=== PATIENT | female | born 1995 | race Caucasian/White ===

== ENCOUNTER → 2016-11-30 | Outpatient (REF) | payer OTHER ==
[~2016-11-30] MED LIST: ACET50TA PO; IBUP-1114 PO; LEVO10VL PO; LEVO137T2 PO; PRENTAB13 PO
[2016-11-30 15:59] LABS: ALBUMIN/GLOBULIN RATIO 1.11 (1.00-1.93); ALKALINE PHOSPHATASE 80 U/L (45-117); ALT/SGPT 20 U/L (12-78); ANION GAP 10 MEQ/L (8-16); AST/SGOT 15 U/L (15-37); BILIRUBIN,TOTAL 0.4 MG/DL (0.2-1.0); BLOOD UREA NITROGEN 11 MG/DL (7-18); CALCIUM LEVEL 8.9 MG/DL (8.5-10.1); CARBON DIOXIDE LEVEL 28 MEQ/L (21-32); CHLORIDE LEVEL 109 MEQ/L (98-107); CHOLESTEROL LEVEL 192 MG/DL (<200); CREATININE FOR GFR 0.76 MG/DL (0.55-1.02); GLOMERULAR FILTRATION RATE > 60.0 (>60); GLUCOSE, FASTING 63 MG/DL (70-105); POTASSIUM SERUM 3.8 MEQ/L (3.5-5.1); SODIUM LEVEL 147 MEQ/L (136-145); TOTAL PROTEIN 7.6 GM/DL (6.4-8.2); TRIGLYCERIDES LEVEL 299 MG/DL (<150)
== END | disposition home or self-care (01) ==
LOC: M SFHCSACK 08:57
PROVIDERS: ATTEND Physician Assistant
DX: E11.9 Type 2 diabetes mellitus without complications (principal); E03.9 Hypothyroidism, unspecified; Z68.38 Body mass index [BMI] 38.0-38.9, adult

== ENCOUNTER → 2017-02-01 | Outpatient (REF) | payer OTHER | LOC: M SFHCSACK 13:20 | PROVIDERS: ATTEND Physician Assistant | DX: E03.9 Hypothyroidism, unspecified (principal) ==

== ENCOUNTER → 2017-02-07 | Outpatient (REF) | payer OTHER | LOC: M LAB REF 17:29 | PROVIDERS: ATTEND Advanced Practice Midwife | DX: Z12.4 Encounter for screening for malignant neoplasm of cervix (principal) ==

== ENCOUNTER → 2017-06-13 | Outpatient (CLI) | payer OTHER ==
[~2017-06-13] MED LIST changes: -PRENTAB13 PO; +PRENTAB20 PO
--- NOTE | 2017-06-13 10:49 | REP ---
Bilateral feet: Right foot two views AP and lateral projections: Comparison is 2014. The previous fracture of the great toe proximal phalange has healed in satisfactory position and alignment. Mineralization joint spaces are normal. There are no calcifications or foreign bodies. Impression: Negative right foot. Healed great toe proximal phalange fracture. Left foot two views: There are no comparisons. Mineralization and joint spaces are normal. There is no fracture or dislocation. No calcifications or foreign bodies. Impression: Negative left foot. Signed by Fazal Ramos MD 06/13/2017 10:41 A
== END ==
LOC: M WUC 09:55
PROVIDERS: ATTEND Family Medicine Addiction Medicine
DX: M21.621 Bunionette of right foot (principal); M21.622 Bunionette of left foot

== ENCOUNTER → 2017-06-13 | Outpatient (CLI) | payer OTHER ==
[2017-06-13 14:06] LABS: ALBUMIN 3.7 GM/DL (3.2-5.2); ALBUMIN/GLOBULIN RATIO 1.09 (1.00-1.93); ALKALINE PHOSPHATASE 63 U/L (45-117); ALT/SGPT 27 U/L (12-78); ANION GAP 10 MEQ/L (8-16); AST/SGOT 12 U/L (15-37); BILIRUBIN,TOTAL 0.2 MG/DL (0.2-1.0); BLOOD UREA NITROGEN 9 MG/DL (7-18); CALCIUM LEVEL 8.7 MG/DL (8.5-10.1); CARBON DIOXIDE LEVEL 24 MEQ/L (21-32); CHLORIDE LEVEL 110 MEQ/L (98-107); CREATININE FOR GFR 0.66 MG/DL (0.55-1.02); GLOMERULAR FILTRATION RATE > 60.0 (>60); GLUCOSE, FASTING 86 MG/DL (70-105); POTASSIUM SERUM 4.1 MEQ/L (3.5-5.1); SODIUM LEVEL 144 MEQ/L (136-145); TOTAL PROTEIN 7.1 GM/DL (6.4-8.2)
== END ==
LOC: M WUC 09:49
PROVIDERS: ATTEND Physician Assistant
DX: E03.9 Hypothyroidism, unspecified (principal)

== ENCOUNTER → 2018-05-16 | Outpatient (REF) | payer OTHER ==
[2018-05-16 15:31] LABS: BASO # 0.1 10^3/uL (0.0-0.2); BASO % 0.5 % (0.0-1.0); EOS # 0.2 10^3/uL (0.0-0.50); EOS % 1.9 % (0.0-3.0); HEMATOCRIT 43.1 % (36.0-47.0); HEMOGLOBIN 13.3 g/dl (12.0-15.5); IMMATURE GRANULOCYTE % 0.4 % (0-3.0); LYMPH # 3.6 10^3/uL (1.5-6.5); LYMPH % 37.2 % (24.0-44.0); MEAN CORPUSCULAR HGB CONC 30.9 g/dl (32.0-36.5); MEAN CORPUSCULAR VOLUME 84.2 fl (80.0-96.0); MONO # 0.7 10^3/uL (0.0-0.8); MONO % 6.8 % (0.0-5.0); NEUTROPHILS # 5.1 10^3/uL (1.8-7.7); NEUTROPHILS % 53.2 % (36.0-66.0); PLATELET COUNT, AUTOMATED 207 10^3/uL (150-450); RED BLOOD COUNT 5.12 10^6/uL (4.00-5.40); RED CELL DISTRIBUTION WIDTH 14.7 % (11.5-14.5); WHITE BLOOD COUNT 9.6 10^3/uL (4.0-10.0)
[2018-05-16 15:42] LABS: ESTIMATED AVERAGE GLUCOSE 120 MG/DL (60-110); HEMOGLOBIN A1c 5.8 %
[2018-05-16 15:49] LABS: ALBUMIN 4.1 GM/DL (3.2-5.2); ALBUMIN/GLOBULIN RATIO 1.11 (1.00-1.93); ALKALINE PHOSPHATASE 68 U/L (45-117); ALT/SGPT 64 U/L (12-78); ANION GAP 8 MEQ/L (8-16); AST/SGOT 43 U/L (7-37); BILIRUBIN,TOTAL 0.4 MG/DL (0.2-1.0); BLOOD UREA NITROGEN 11 MG/DL (7-18); CALCIUM LEVEL 8.9 MG/DL (8.5-10.1); CARBON DIOXIDE LEVEL 26 MEQ/L (21-32); CHLORIDE LEVEL 108 MEQ/L (98-107); CHOLESTEROL LEVEL 186 MG/DL (<200); CHOLESTEROL RISK RATIO 4.769 (<5); CREATININE FOR GFR 0.75 MG/DL (0.55-1.30); FREE T4 0.84 NG/DL (0.76-1.46); GLOMERULAR FILTRATION RATE > 60.0 (>60); GLUCOSE, FASTING 76 MG/DL (70-100); HDL CHOLESTEROL 39 MG/DL (>40); NON-HDL-C 147 MG/DL; POTASSIUM SERUM 4.8 MEQ/L (3.5-5.1); SODIUM LEVEL 142 MEQ/L (136-145); TOTAL PROTEIN 7.8 GM/DL (6.4-8.2); TRIGLYCERIDES LEVEL 290 MG/DL (<150)
== END ==
LOC: M SFHCSACK 09:49
DX: E11.9 Type 2 diabetes mellitus without complications (principal); E03.9 Hypothyroidism, unspecified; Z13.220 Encounter for screening for lipoid disorders
CPT/HCPCS: 84443

== ENCOUNTER → 2018-10-02 | Outpatient (REF) | payer OTHER ==
[2018-10-02 18:04] LABS: MALB URINE SIEMENS 15.2 MG/L; MAU/CREAT RATIO 7.4 MCG/MG (0.0-30.0)
[2018-10-02 18:18] LABS: ESTIMATED AVERAGE GLUCOSE 114 MG/DL (60-110); HEMOGLOBIN A1c 5.6 %
[2018-10-02 18:39] LABS: ALBUMIN 3.8 GM/DL (3.2-5.2); ALBUMIN/GLOBULIN RATIO 1.09 (1.00-1.93); ALKALINE PHOSPHATASE 66 U/L (45-117); ALT/SGPT 22 U/L (12-78); ANION GAP 9 MEQ/L (8-16); AST/SGOT 10 U/L (7-37); BILIRUBIN,TOTAL 0.3 MG/DL (0.2-1.0); BLOOD UREA NITROGEN 10 MG/DL (7-18); CALCIUM LEVEL 8.5 MG/DL (8.5-10.1); CARBON DIOXIDE LEVEL 25 MEQ/L (21-32); CHLORIDE LEVEL 108 MEQ/L (98-107); CHOLESTEROL LEVEL 214 MG/DL (<200); CHOLESTEROL RISK RATIO 6.484 (<5); CREATININE FOR GFR 0.72 MG/DL (0.55-1.30); GLOMERULAR FILTRATION RATE > 60.0 (>60); GLUCOSE, FASTING 72 MG/DL (70-100); HDL CHOLESTEROL 33 MG/DL (>40); LDL CHOLESTEROL 139 MG/DL (<100); NON-HDL-C 181 MG/DL; POTASSIUM SERUM 4.2 MEQ/L (3.5-5.1); SODIUM LEVEL 142 MEQ/L (136-145); TOTAL PROTEIN 7.3 GM/DL (6.4-8.2); TRIGLYCERIDES LEVEL 209 MG/DL (<150)
== END ==
LOC: M LAB REF 16:24
DX: R73.03 Prediabetes (principal)
CPT/HCPCS: 84443

== ENCOUNTER → 2019-02-25 | Outpatient (REF) | payer OTHER, MEDICAID ==
[~2019-02-25] MED LIST changes: -ACET50TA PO; +LEVO100I PO; -LEVO10VL PO; +MAPA500T2 PO
[2019-02-25 14:06] LABS: ALBUMIN 3.8 GM/DL (3.2-5.2); ALT/SGPT 23 U/L (12-78); BILIRUBIN,TOTAL 0.3 MG/DL (0.2-1.0); BLOOD UREA NITROGEN 9 MG/DL (7-18); CALCIUM LEVEL 8.5 MG/DL (8.5-10.1); CARBON DIOXIDE LEVEL 21 MEQ/L (21-32); CHLORIDE LEVEL 108 MEQ/L (98-107); CHOLESTEROL LEVEL 171 MG/DL (<200); CHOLESTEROL RISK RATIO 4.621 (<5); CREATININE FOR GFR 0.75 MG/DL (0.55-1.30); GLOMERULAR FILTRATION RATE > 60.0 (>60); GLUCOSE, FASTING 89 MG/DL (70-100); HDL CHOLESTEROL 37 MG/DL (>40); LDL CHOLESTEROL 87 MG/DL (<100); NON-HDL-C 134 MG/DL; SODIUM LEVEL 141 MEQ/L (136-145); TOTAL PROTEIN 7.6 GM/DL (6.4-8.2); TRIGLYCERIDES LEVEL 235 MG/DL (<150)
[2019-02-25 15:46] LABS: HEMOGLOBIN A1c 5.6 %
== END ==
LOC: M LAB REF 12:17
PROVIDERS: ATTEND Family Medicine Addiction Medicine
DX: R73.03 Prediabetes (principal); E03.8 Other specified hypothyroidism

== ENCOUNTER 2019-05-12 17:23 | Emergency (ER) | payer MEDICAID, OTHER ==
[~2019-05-12] VITALS: Ht 172.7 cm; Wt 111.4 kg
[2019-05-12] MEDS ORDERED: LEVO175T2 (17:30)
[2019-05-12] MEDS ORDERED: HYDR-3363 (17:30)
[2019-05-12] MEDS ORDERED: SERT-155 (17:30)
[2019-05-12 18:02] LABS: BASO # 0.1 10^3/uL (0.0-0.2); BASO % 0.5 % (0.0-1.0); EOS # 0.3 10^3/uL (0.0-0.50); EOS % 1.9 % (0.0-3.0); HEMATOCRIT 39.5 % (36.0-47.0); HEMOGLOBIN 12.7 g/dl (12.0-15.5); LYMPH # 3.8 10^3/uL (1.5-6.5); MEAN CORPUSCULAR HEMOGLOBIN 27.7 pg (27.0-33.0); MEAN CORPUSCULAR HGB CONC 32.2 g/dl (32.0-36.5); MEAN CORPUSCULAR VOLUME 86.2 fl (80.0-96.0); MONO # 0.8 10^3/uL (0.0-0.8); MONO % 6.4 % (0.0-5.0); NEUTROPHILS # 8.2 10^3/uL (1.8-7.7); NEUTROPHILS % 61.7 % (36.0-66.0); PLATELET COUNT, AUTOMATED 227 10^3/uL (150-450); RED BLOOD COUNT 4.58 10^6/uL (4.00-5.40); WHITE BLOOD COUNT 13.2 10^3/uL (4.0-10.0)
[2019-05-12 18:20] LABS: ALBUMIN 3.9 GM/DL (3.2-5.2); ALT/SGPT 20 U/L (12-78); BILIRUBIN,DIRECT < 0.1 MG/DL (0.0-0.2); BILIRUBIN,TOTAL 0.2 MG/DL (0.2-1.0); BLOOD UREA NITROGEN 13 MG/DL (7-18); CALCIUM LEVEL 9.4 MG/DL (8.5-10.1); CARBON DIOXIDE LEVEL 24 MEQ/L (21-32); CHLORIDE LEVEL 114 MEQ/L (98-107); CREATININE FOR GFR 0.85 MG/DL (0.55-1.30); GLOMERULAR FILTRATION RATE > 60.0 (>60); GLUCOSE, FASTING 101 MG/DL (70-100); LIPASE 117 U/L (73-393); POTASSIUM SERUM 3.9 MEQ/L (3.5-5.1); SODIUM LEVEL 146 MEQ/L (136-145); TOTAL PROTEIN 7.5 GM/DL (6.4-8.2)
[2019-05-12 20:32] VITALS: BP 143/66
[2019-05-12] MEDS ORDERED: IBUPROFEN 600 MG TAB PO ONE (21:00)
== END 2019-05-12 21:14 | disposition home or self-care (01) ==
LOC: M ED 17:23
DX: R10.32 Left lower quadrant pain (principal); E11.9 Type 2 diabetes mellitus without complications; E03.9 Hypothyroidism, unspecified; E78.5 Hyperlipidemia, unspecified; Z79.899 Other long term (current) drug therapy; Z79.890 Hormone replacement therapy; F17.210 Nicotine dependence, cigarettes, uncomplicated

== ENCOUNTER → 2019-07-07 | Outpatient (REF) | payer OTHER ==
[~2019-07-07] MED LIST changes: +HYDR-3363; +LEVO175T2; +SERT-155
[2019-07-07 18:45] LABS: ALT/SGPT 25 U/L (12-78); BILIRUBIN,TOTAL 0.5 MG/DL (0.2-1.0); BLOOD UREA NITROGEN 12 MG/DL (7-18); CARBON DIOXIDE LEVEL 24 MEQ/L (21-32); CHLORIDE LEVEL 112 MEQ/L (98-107); CHOLESTEROL LEVEL 181 MG/DL (<200); CHOLESTEROL RISK RATIO 5.484 (<5); CREATININE FOR GFR 0.77 MG/DL (0.55-1.30); FREE T4 0.92 NG/DL (0.76-1.46); GLOMERULAR FILTRATION RATE > 60.0 (>60); GLUCOSE, FASTING 80 MG/DL (70-100); HDL CHOLESTEROL 33 MG/DL (>40); LDL CHOLESTEROL 110 MG/DL (<100); NON-HDL-C 148 MG/DL; POTASSIUM SERUM 4.2 MEQ/L (3.5-5.1); SODIUM LEVEL 143 MEQ/L (136-145); TOTAL PROTEIN 7.5 GM/DL (6.4-8.2); TRIGLYCERIDES LEVEL 189 MG/DL (<150)
[2019-07-07 19:32] LABS: HEMOGLOBIN A1c 5.5 %
== END ==
LOC: M LAB REF 16:46
PROVIDERS: ATTEND Nurse Practitioner Family
DX: Z13.9 Encounter for screening, unspecified (principal); R73.03 Prediabetes

== ENCOUNTER → 2019-07-28 | Outpatient (CLI) | payer OTHER ==
[~2019-07-28] MED LIST changes: +GASTROGRAFIN SOLUTION 30ML (Q9963) As Ordered ONE; +ISOVUE-370 76% 100ML VIAL (Q9967) As Ordered ONE
--- NOTE | 2019-07-29 08:50 | REP ---
Clinical: Left upper quadrant pain. Technique: Axial contrast enhanced images of the abdomen using oral (per protocol) and 100 ml Isovue 370 intravenous contrast material with coronal and sagittal re-formations. Findings: Lung bases are clear. Visualized heart and pericardium normal. Liver, spleen, pancreas, gallbladder, bilateral adrenal glands and kidneys are normal. Visualized enteric system is without obstruction or acute inflammatory process. No ascites. Abdominal aorta normal. No free air. No adenopathy. Musculoskeletal structures are intact. Impression: Normal contrast enhanced CT of the abdomen. Electronically Signed by Kiko Baron MD 07/29/2019 08:41 A
== END ==
LOC: M RAD 13:15
PROVIDERS: ATTEND Nurse Practitioner Family
DX: R10.12 Left upper quadrant pain (principal)
CPT/HCPCS: 74160; Q9963; Q9967

== ENCOUNTER → 2019-10-30 | Outpatient (REF) | payer OTHER ==
[~2019-10-30] MED LIST changes: -GASTROGRAFIN SOLUTION 30ML (Q9963) As Ordered ONE; -ISOVUE-370 76% 100ML VIAL (Q9967) As Ordered ONE; -SERT-155; +SERT50TA29
[2019-10-30 13:03] LABS: INFLUENZA A AMPLIFICATION NEGATIVE (NEGATIVE); INFLUENZA B AMPLIFICATION NEGATIVE (NEGATIVE)
== END ==
LOC: M LAB REF 12:23
PROVIDERS: ATTEND Physician Assistant
DX: R50.9 Fever, unspecified (principal); R05 Cough

== ENCOUNTER → 2019-11-06 | Outpatient (REF) | payer OTHER | LOC: M SFHCWAGY 19:15 | PROVIDERS: ATTEND Advanced Practice Midwife | DX: Z12.4 Encounter for screening for malignant neoplasm of cervix (principal) ==

== ENCOUNTER → 2020-01-19 | Outpatient (REF) | payer OTHER | LOC: M PLALAB 10:16 | PROVIDERS: ATTEND Obstetrics & Gynecology | DX: Z34.81 Encounter for supervision of other normal pregnancy, first trimester (principal) ==

== ENCOUNTER → 2020-02-22 | Outpatient (REF) | payer OTHER ==
[2020-02-22 13:54] LABS: HEMATOCRIT 38.9 % (36.0-47.0); HEMOGLOBIN 12.5 g/dl (12.0-15.5); MEAN CORPUSCULAR HGB CONC 32.1 g/dl (32.0-36.5); PLATELET COUNT, AUTOMATED 200 10^3/uL (150-450); RED BLOOD COUNT 4.47 10^6/uL (4.00-5.40); WHITE BLOOD COUNT 14.1 10^3/uL (4.0-10.0)
[2020-02-22 14:08] LABS: FREE T4 0.88 NG/DL (0.76-1.46)
[2020-02-22 14:21] LABS: RUBELLA IgG QUALITATIVE IMMUNE (IMMUNE)
[2020-02-22 14:22] LABS: HEPATITIS B SURFACE ANTIGEN NEGATIVE (NEGATIVE)
[2020-02-22 14:50] LABS: HEPATITIS C VIRUS ABY INDEX 0.1 INDEX (<0.8); HIV 1&2 SCREEN CENTAUR NEGATIVE (NEGATIVE)
[2020-02-22 15:16] LABS: CHLAMYDIA DNA AMPLIFICATION NEGATIVE (NEGATIVE); GC DNA AMPLIFICATION NEGATIVE (NEGATIVE)
== END ==
LOC: M PLALAB 11:31
PROVIDERS: ATTEND Obstetrics & Gynecology
DX: Z34.81 Encounter for supervision of other normal pregnancy, first trimester (principal)

== ENCOUNTER → 2020-02-24 | Outpatient (REF) | payer OTHER | LOC: M PLALAB 15:43 | PROVIDERS: ATTEND Obstetrics & Gynecology | DX: E03.9 Hypothyroidism, unspecified (principal) ==

== ENCOUNTER → 2020-03-29 | Outpatient (CLI) | payer OTHER ==
--- NOTE | 2020-03-30 02:48 | REP ---
Clinical: Anatomical evaluation. Comparison: None . Findings: Examination demonstrates a single live intrauterine in transverse (head to maternal right) presentation. motion is identified by technologist. Placenta is noted anterior and grade zero without evidence for placenta previa or abruption. Amniotic fluid volume is normal. Cervix measures 3.3 cm in length and appears closed. No evidence for nuchal cord. Gestational age by current measurements 19 weeks 2 days with ROYAL 08/21/2020 . FHR equals 161 beats per minute. BPD 4.5 cm 19 weeks 4 days HC 16.8 cm 19 weeks 3 days AC 14.1 cm 19 weeks 3 days FL 3.1 cm 19 weeks 3 days HL 2.9 cm 19 weeks 3 days HC/AC ratio 1.19 Estimated weight 294 grams ( 52nd percentile). Anatomical assessment demonstrates normal structures including cranium, choroid plexus, cavum, cerebellum/posterior fossa, facial features, lungs, four-chamber heart, diaphragm, stomach, cord insertion, bladder, and extremities. Limited evaluation of the cardiac ventricular outflow tracts, three-vessel cord views, kidneys, and spine. Impression: Single live intrauterine in transverse lie demonstrating appropriate estimated weight. Anatomical limitations as noted above may warrant reevaluation and follow-up.
== END ==
LOC: M WHC 08:55
PROVIDERS: ATTEND Advanced Practice Midwife
DX: Z34.82 Encounter for supervision of other normal pregnancy, second trimester (principal)

== ENCOUNTER → 2020-05-05 | Outpatient (CLI) | payer OTHER ==
--- NOTE | 2020-05-05 12:12 | REP ---
Clinical: Anatomical evaluation. Comparison: 03/29/2020 . Findings: Examination demonstrates a single live intrauterine in transverse (head to maternal left) presentation. motion is identified by technologist. Placenta is noted anterior and grade zero without evidence for placenta previa or abruption. Amniotic fluid volume is normal. Cervix measures 3.4 cm in length and appears closed. No evidence for nuchal cord. Gestational age by LMP 24 weeks 6 days with ROYAL 08/19/2020 . Gestational age by current measurements 24 weeks 3 days with ROYAL 08/22/2020 . FHR equals 150 beats per minute. Estimated weight 738 grams ( 41st percentile). Anatomical assessment demonstrates normal structures including four-chamber heart/ventricular outflow tracts, three-vessel cord, kidneys and spine. Impression: single live intrauterine in transverse lie demonstrating appropriate interval growth. In conjunction with prior examination anatomical assessment is complete and normal.
== END ==
LOC: M WHC 11:09
PROVIDERS: ATTEND Advanced Practice Midwife
DX: O32.2XX0 Maternal care for transverse and oblique lie, not applicable or unspecified (principal); Z36.2 Encounter for other antenatal screening follow-up; Z3A.24 24 weeks gestation of pregnancy

== ENCOUNTER → 2020-05-26 | Outpatient (CLI) | payer OTHER ==
[~2020-05-26] MED LIST changes: +COLA100C5 PO; +PRENTAB9 PO
== END ==
LOC: M LAB 08:45
PROVIDERS: ATTEND Advanced Practice Midwife
DX: O99.332 Smoking (tobacco) complicating pregnancy, second trimester (principal); O99.212 Obesity complicating pregnancy, second trimester; Z3A.22 22 weeks gestation of pregnancy

== ENCOUNTER → 2020-06-28 | Outpatient (CLI) | payer OTHER | LOC: M WHC 10:45 | PROVIDERS: ATTEND Advanced Practice Midwife | DX: Z34.82 Encounter for supervision of other normal pregnancy, second trimester (principal) ==

== ENCOUNTER → 2020-07-05 | Outpatient (CLI) | payer OTHER ==
--- NOTE | 2020-08-02 14:45 | REP ---
OBSTETRICAL ULTRASOUND WITH BIOPHYSICAL PROFILE HISTORY: Gestational diabetes. FINDINGS: Real-time sonographic evaluation of gravid uterus performed. There is a single living intrauterine gestation. Estimated gestational age based on todays ultrasound measurements 35 weeks 0 days, EDC 08/09/2020. BPD 85 mm, 34 weeks 3 days. AC 313 mm, 35 weeks 2 days. HC 325 mm, 36 weeks 6 days. Femur length 64 mm, 33 weeks 2 days. heart rate 135 beats per minute. Estimated weight 2505 grams, according to the technologist this is at the 78th percentile. position cephalic. Placenta is anterior and grade 2 with no previa or abruption. anatomy evaluation was not performed on this exam. Subjectively, the amniotic fluid volume appears upper limits of normal. NÉSTOR was 20.9. Biophysical profile score is 8/8. MTDD
== END ==
LOC: M WHC 10:33
PROVIDERS: ATTEND Advanced Practice Midwife
DX: Z34.80 Encounter for supervision of other normal pregnancy, unspecified trimester (principal)

== ENCOUNTER → 2020-07-12 | Outpatient (CLI) | payer OTHER ==
--- NOTE | 2020-08-02 14:46 | REP ---
BIOPHYSICAL PROFILE ULTRASOUND CLINICAL: [facility]. COMPARISON: 07/05/2020. TECHNIQUE: Transabdominal obstetrical ultrasound with color Doppler evaluation. FINDINGS: Ultrasound examination demonstrates single live intrauterine in cephalic presentation. motion was identified by the technologist. Placenta noted anteriorly and grade 2 without placenta previa or abruption. Amniotic fluid volume is normal. Amniotic fluid index (NÉSTOR) equals 15.6 cm. Cervix measures 3.8 cm in length and appears closed. heart rate equals 142 beats per minute. Umbilical cord S/D ratio equals 2.6. Amniotic fluid index equals 15.6 cm. Biophysical profile score equals 8/8. IMPRESSION: Single live advanced gestational in cephalic presentation. Biophysical profile score equals 8/8. Amniotic fluid volume is normal. MTDD
== END ==
LOC: M WHC 10:37
PROVIDERS: ATTEND Advanced Practice Midwife
DX: O24.419 Gestational diabetes mellitus in pregnancy, unspecified control (principal); Z3A.00 Weeks of gestation of pregnancy not specified

== ENCOUNTER → 2020-07-19 | Outpatient (CLI) | payer OTHER ==
--- NOTE | 2020-08-04 09:49 | REP ---
BIOPHYSICAL PROFILE ULTRASOUND COMPARISON: 07/05/2020. TECHNIQUE: Transabdominal obstetrical ultrasound with color Doppler evaluation. FINDINGS: Ultrasound examination demonstrates a single live intrauterine in cephalic presentation. Placenta is noted anteriorly and grade 3 without evidence for placenta previa. Cervix measures 3.1 cm in length and appears closed. Gestational age by last menstrual period (LMP) 35 weeks 4 days with estimated date of delivery 08/09/2020. heart rate (FHR) 152 beats per minute. Amniotic fluid index (NÉSTOR) 12.1 cm (7.8 24.9). Biophysical profile score equals 8/8. IMPRESSION: Single live advanced gestation in cephalic presentation. Biophysical profile score equals 8/8. Amniotic fluid index (NÉSTOR) normal. MTDD
== END ==
LOC: M WHC 10:33
PROVIDERS: ATTEND Advanced Practice Midwife
DX: O24.419 Gestational diabetes mellitus in pregnancy, unspecified control (principal); Z3A.35 35 weeks gestation of pregnancy

== ENCOUNTER → 2020-07-20 | Outpatient (REF) | payer OTHER | LOC: M SFHCWAGY 16:39 | PROVIDERS: ATTEND Specialist | DX: Z34.83 Encounter for supervision of other normal pregnancy, third trimester (principal); Z3A.00 Weeks of gestation of pregnancy not specified ==

== ENCOUNTER → 2020-07-26 | Outpatient (CLI) | payer OTHER ==
--- NOTE | 2020-08-04 09:50 | REP ---
OBSTETRIC SONOGRAPHY HISTORY: Supervision of , growth study, weekly biophysical profile. FINDINGS: Scanning through the gravid uterus demonstrates a single living intrauterine gestation in a cephalic lie. motion is observed, and heart rate is recorded at 124 beats per minute. An anterior grade 2 placenta is seen without evidence of previa or abruption. Amniotic fluid is subjectively normal. Closed cervical length is measured at 3.2 cm viewed transabdominally. Biophysical profile score is 8 out of a possible 8. S/D ratio in the umbilical cord artery by Doppler is normal at 2.8. BIOMETRY CHART: BPD 9.0 cm 36 weeks 3 days Head Circumference 31.7 cm 35 weeks 4 days Abdominal Circumference 32.7 cm 36 weeks 4 days Femur Length 6.9 cm 35 weeks 3 days Humeral Length 6.3 cm 36 weeks 3 days HC/AC ratio normal at 0.97. Cephalic index normal at 0.81. Estimated weight 2,867 grams, 6 pounds 5 ounces, 56th percentile for 36 weeks 4 days. IMPRESSION: Viable single intrauterine gestation at 36 weeks 1 day by todays composite criteria. ROYAL by todays sonography August 22, 2020. Estimated weight 56th percentile. Biophysical profile score 8 out of a possible 8. MTDD
== END ==
LOC: M WHC 10:39
PROVIDERS: ATTEND Advanced Practice Midwife
DX: O24.419 Gestational diabetes mellitus in pregnancy, unspecified control (principal); Z3A.36 36 weeks gestation of pregnancy

== ENCOUNTER → 2020-08-02 | Outpatient (CLI) | payer OTHER ==
--- NOTE | 2020-08-09 12:53 | REP ---
OBSTETRICAL ULTRASOUND BIOPHYSICAL PROFILE HISTORY: Gestational diabetes. FINDINGS: Real-time sonographic evaluation of gravid uterus performed. There is a single living intrauterine gestation. The estimated gestational age is reportedly 37 weeks 4 days, EDC 08/19/2020. position is cephalic. Placenta is anterior and grade 3 with no previa or abruption. heart rate is 140 beats per minute. Amniotic fluid is within normal limits. NÉSTOR is 12.2 with a normal range of 7.4 to 24.1. Biophysical profile score is 8/8. S/D ratio in the umbilical artery is within normal range, 0.67 to 0.69. MTDD
== END ==
LOC: M WHC 10:06
PROVIDERS: ATTEND Advanced Practice Midwife
DX: O24.419 Gestational diabetes mellitus in pregnancy, unspecified control (principal); Z3A.37 37 weeks gestation of pregnancy

== ENCOUNTER 2020-08-06 11:32 | Inpatient (IN) | payer OTHER ==
[~2020-08-06] VITALS: Ht 172.7 cm; Wt 133.4 kg
[~2020-08-06 11:32] MED LIST changes: -COLA100C5 PO; -PRENTAB9 PO
[2020-08-06 12:10] VITALS: BP 127/62
[2020-08-06] MEDS ORDERED: COLA100C5 PO (12:18)
[2020-08-06] MEDS ORDERED: PRENTAB9 PO (12:18)
[2020-08-06] MEDS ORDERED: MAPA500T2 PO (12:18)
[2020-08-06 13:04] VITALS: BP 115/57
[2020-08-06] MEDS ORDERED: LACTATED RINGER'S 1000 ML IV STA (14:14)
[2020-08-06] MEDS ORDERED: PENICILLIN G POTASSIUM IV 5 MU in D5W MINI-BAG PLUS 100 ML IV STA (14:28)
--- NOTE | 2020-08-06 14:44 | HPEPDOC ---
Obstetrical History & Physical General Date of Admission Aug 06, 2020 at 11:32 History of Present Illness 25yo at 38+2 weeks presents for IOL secondary to dx of GDM, poorly controlled/poor compliance. Chief Complaint: Induction of labor, Group B Positive Age: 25 : 2 Term: 1 Pre-term: 0 Abortions: 0 Livin Care Care: Good Care Dating Final EDC: Aug 19, 2020 Final EDC by: 1st trimester (US) Antepartum Course Diagnos(e)s Gestational DM, Hypothyroidism, Depression, Obesity (BMI 44) Past Medical History Past Obstetrical History : Past Obstetrical History: Multigravida Type of Delivery: Spontaneous Vaginal Del. 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 Past Medical History Medical History Hypothyroidism, controlled with Synthroid 175mcg daily Depression Chronic YOUSIF's Surgical History: Tonsilectomy Family History Family History Hypothyroidism (sister), bladder CA (father), Hypertension (mother) Social History Social history No t/e/d Psychosocial History: Depression * Smoker: former Smoker Alcohol: Denies Drugs: denies Abuse Violence Screening Have you been hit/kicked/slapp: No Have you been sexually assault: No Allergies Coded Allergies: No Known Allergies (Unverified , 05/12/19) Medications Scheduled No.137/Iron/Folic Acd ( Vitamin Tablet) 1 Each Tablet, 1 TAB PO DAILY Scheduled PRN Docusate Sodium (Colace) 100 Mg Capsule, 1 CAP PO PRN PRN for CONSTIPATION Miscellaneous Medications Acetaminophen (Mapap) 500 Mg Tablet, 1,000 MG PO Levothyroxine Sodium (Levothyroxine Sodium) 175 Mcg Tablet Physical Examination Physical Examination GENERAL: Alert and oriented times three. BREAST: . ABDOMEN: Gravid and non-tender to touch. FETUS: Is vertex (VTX) by sterile vaginal examination (SVE), fetus is vertex (VTX) by Michael. HEART RATE: Regular rate and rhythm. LUNGS: Clear to auscultation (CTA). EXTREMITIES: No edema. No clonus. Deep tendon reflexes (DTRs) SVE: 2-3cm, 50%, -3, cephalic, intact. Vital Signs/I&O Vital Signs Date Time Temp Pulse Resp B/P (MAP) Pulse Ox O2 Delivery O2 Flow Rate FiO2 08/06/20 13:04 85 18 115/57 (76) 08/06/20 12:10 97.8 Laboratory Data 24H LABS Laboratory Tests 2 08/06/20 11:36: Serology Scanned Report Hepatitis B Testing Pertinent Laboratoy Data Blood Type: AB+ HIV: Negative Hepatitis B: Negative Hepatitis C: Negative Rapid Plasma Reagin: Nonreactive Rubella: Immune Varicella: Nonreactive Chlamydia/Gonorrhea: Negative Group B Streptococcus: Positive Anatomy Ultrasound Placenta Location: Anterior Normal Anatomy: Yes Placenta Previa: No Other Ultrasounds 07/28/20 Information EFW: 56th percentile, 2867g Assessment Heart Rate (FHR): 140 Variability: Moderate Accelerations: Positive Decelerations: None Tocometer Frequency: irregular Assessment/Plan Assessment Diane is a 25-year-old (G)2 para (P)1001 at 38+2 weeks. Presents to Labor and Delivery (L&D) for IOL secondary to poor GDM compliance/glycemic control. Plan Admit and orient. Production Coordinator and consent. Group B Streptococcus (GBS) Postive; IV PCN prophylaxis ordered Labs and intravenous (IV) per unit protocol. Start with Misoprostol 50mcg SL Anticipate normal spontaneous delivery (). C-S as appropriate. GIOVANNA FERNANDES DO Aug 06, 2020 14:44
[2020-08-06] MEDS ORDERED: miSOPROStol 50 MCG 1/2 TAB (S0191) SL ONE (15:15)
[2020-08-06] MEDS: LR 1,000 ML IV SCH ×2 (15:17→19:49)
[2020-08-06 15:18] LABS: HEMOGLOBIN 11.3 g/dl (12.0-15.5); MEAN CORPUSCULAR HEMOGLOBIN 27.8 pg (27.0-33.0); MEAN CORPUSCULAR HGB CONC 31.4 g/dl (32.0-36.5); MEAN CORPUSCULAR VOLUME 88.5 fl (80.0-96.0); PLATELET COUNT, AUTOMATED 209 10^3/uL (150-450); RED BLOOD COUNT 4.07 10^6/uL (4.00-5.40); WHITE BLOOD COUNT 15.7 10^3/uL (4.0-10.0)
[2020-08-06 15:28] VITALS: BP 115/54
[2020-08-06] MEDS ORDERED: ACETAMINOPHEN 500 MG TAB PO ONE (17:00)
[2020-08-06 17:02] VITALS: BP 107/51
[2020-08-06 18:04] VITALS: BP 109/54
[2020-08-06] MEDS ORDERED: OXYTOCIN DRIP 30 UNITS in IV 1 EA IV SCH (19:00)
[2020-08-06] MEDS: PENICILLIN G POTASSIUM IV 2.5 MU in IV 1 EA IV SCH ×2 (19:41→23:42)
[2020-08-07] VITALS (20 sets, daily range): BP systolic 106–166; BP diastolic 52–78
[2020-08-07] MEDS: LR 1,000 ML IV SCH ×2 (00:46→13:13)
[2020-08-07] MEDS: PENICILLIN G POTASSIUM IV 2.5 MU in IV 1 EA IV SCH ×3 (03:28→12:11)
[2020-08-07] MEDS: LEVOTHYROXINE 150MCG TABLET (0.15MG) PO SCH ×2 (06:00→07:31)
[2020-08-07] MEDS: LEVOTHYROXINE 25MCG TABLET (0.025MG) PO SCH ×2 (06:00→07:32)
--- NOTE | 2020-08-07 10:25 | IPNPDOC ---
Obstetrical Progress Note Date of Service Aug 07, 2020 Subjective Patient not feeling significantly uncomfortable with her contractions. RN having difficulty adjusting external monitors for continuous tracing, secondary to her body habitus. No LOF/VB. +FM. No YOUSIF, n/v, visual changes, RUQ pain, sob, cp. Objective Vital Signs Date Time Temp Pulse Resp B/P (MAP) Pulse Ox O2 Delivery O2 Flow Rate FiO2 08/06/20 18:04 98.8 83 18 109/54 (72) Assessment Heart Rate (FHR): 110 Variability: Moderate Accelerations: Positive Decelerations: None Heart Rate Tracing: Category I Tocometer Contractions: Yes Frequency: irregular Sterile Vaginal Examination Dilation: 5 cm Effacement (%): 50% Station: -3 Cervical Consistency: Soft Cervical Position: Middle Postion/Presentation: Cephalic presentation Assessment and Plan Age: 25 : 2 Term: 1 Weeks & Days 38+3 Status: Reassuring Group B Streptococcus: Positive Anticipate: Vaginal Delivery (Continue Pitocin. AROM clear at 1015. FSE and IUPC placed without difficulty.) GIOVANNA FERNANDES DO Aug 07, 2020 10:25
[2020-08-07 14:09] LABS: CORD GAS ABE V -6.4; CORD GAS HCO3 V 17.7 MEQ/L; CORD GAS O2 SAT V 90.5 %; CORD GAS PCO2 V 31.8 mmHg; CORD GAS PH V 7.364 UNITS; CORD GAS PO2 V 46.3 mmHg; CORD GAS SBC V 19.2 MEQ/L; CORD GAS TCO2 V 18.7 MEQ/L
[2020-08-07 14:10] LABS: CORD GAS ABE A -5.5; CORD GAS HCO3 A 19.2 MEQ/L; CORD GAS PCO2 A 35.1 mmHg; CORD GAS PH A 7.355 UNITS; CORD GAS PO2 A 54.8 mmHg; CORD GAS SBC A 19.9 MEQ/L; CORD GAS TCO2 A 20.2 MEQ/L
[2020-08-07] MEDS ORDERED: DIBUCAINE 1% OINTMENT 30GM TOP PRN (14:15)
[2020-08-07] MEDS ORDERED: DOCUSATE SODIUM 100 MG CAP PO PRN (14:15)
[2020-08-07] MEDS ORDERED: ONDANSETRON 4MG/2ML VIAL IV PRN (14:15)
[2020-08-07] MEDS ORDERED: IBUPROFEN 800 MG TAB PO PRN (14:15)
[2020-08-07] MEDS ORDERED: MEASLES,MUMPS,RUBELLA VACCINE INJ (MMR-II) (90707) SC SCH (14:15)
[2020-08-07] MEDS ORDERED: PROMETHAZINE 25 MG TAB PO PRN (14:15)
[2020-08-07] MEDS ORDERED: ACETAMINOPHEN TAB 650MG DOSE (2X325MG) PO PRN (14:15)
[2020-08-07] MEDS ORDERED: IBUPROFEN 600MG TAB PO PRN (14:15)
[2020-08-07] MEDS ORDERED: RHOGAM 300 MCG (1500 IU) INJ (J2790) IM SCH (14:15)
--- NOTE | 2020-08-07 14:21 | DNPDOC ---
[facility] Delivery Note DATE OF DELIVERY: 08/07/2020 TIME OF DELIVERY: 1355 Spontaneous vaginal delivery. [employer]: Dr. Willem Liu DO FACOG ANESTHESIA: Epidural. ESTIMATED BLOOD LOSS: 200 mL. FINDINGS: 8 pound 1 ounce (3670g) Male , Score 7 and 9. DELIVERY SUMMARY: The active phase and second stage of labor progressed in normal fashion.. She received Pitocin augmentation throughout her labor course. The head delivered in the WIN position, and restituted LOT. No nuchal cord was noted. The anterior shoulder delivered with gentle downward guidance and the remainder of the body delivered with ease. The baby was placed on the patient's chest. Delayed cord clamping occurred for approximately 1 minute. The cord was then doubly clamped and cut. IV Pitocin was bolused to actively manage the third stage of labor. The placenta delivered intact without any difficulty within 10 minutes of delivery. The uterine fundus was noted to be firm and 2 cm below the umbilicus. The cervix, vagina, vulva and perineum were inspected. No laceration was noted. Excellent hemostasis was noted. Sponge, needle and instrument counts were correct per protocol. DO BRYANNA Grider JONATHAN R. DO Aug 07, 2020 14:21
[2020-08-07] MEDS ORDERED: OXYTOCIN DRIP 30 UNITS in IV 1 EA IV SCH (14:30)
[2020-08-07] MEDS ORDERED: LR 1,000 ML IV SCH (14:30)
[2020-08-07] MEDS: ACETAMINOPHEN 500 MG TAB PO PRN (17:57)
[2020-08-08] MEDS: LEVOTHYROXINE 150MCG TABLET (0.15MG) PO SCH (05:57)
[2020-08-08] MEDS: LEVOTHYROXINE 25MCG TABLET (0.025MG) PO SCH (05:57)
[2020-08-08 06:00] VITALS: BP 129/58
--- NOTE | 2020-08-08 07:26 | IPNPDOC ---
Progress Note Date of Service: Aug 08, 2020 Day#: 1 Progress Note SUBJECT: Status post . She has been ambulating, voiding spontaneously witho ut issue and tolerating regular diet. Lochia decreasing/minimal. Patient is ambulating well. OBJECTIVE: VITAL SIGNS: Within normal limits, afebrile. Alert and oriented times three. Abdomen: Fundus firm at U-2. Soft, NTTP. ASSESSMENT: Status post uncomplicated spontaneous vaginal delivery. Vitals within normal limits, afebrile, hemodynamically stable with no evidence of infec tion. PLAN: Discharge to home today. Tylenol and Motrin for pain. Routine instructions/precautions reviewed. Routine PP visit in 6 weeks in clinic. VS, I&O, 24H, Fishbone Vital Signs/I&O Vital Signs Date Time Temp Pulse Resp B/P (MAP) Pulse Ox O2 Delivery O2 Flow Rate FiO2 08/08/20 06:00 98.7 81 18 129/58 (81) 08/07/20 17:52 100 I&O- Last 24 Hours up to 6 AM 08/08/20 06:00 Output Total 700 ml Balance -700 ml Laboratory Data 24H LABS Laboratory Tests 2 08/07/20 14:02: Cord Arterial Blood pH 7.355, Cord Arterial Blood PCO2 35.1, Cord Arterial Blood PO2 54.8, Cord Arterial Blood HCO3 19.2, Cord Arterial Blood Total CO2 20.2, Cord Arterial Blood Base Excess -5.5, Cord Arterial Base Excess (Standard 19.9, Cord Arterial Bld Oxygen Saturation 94.0, Cord Venous Blood pH 7.364, Cord Venous Blood PCO2 31.8, Cord Venous Blood PO2 46.3, Cord Venous Blood HCO3 17.7, Cord Venous Blood Total CO2 18.7, Cord Venous Base Excess (Actual) -6.4, Cord Venous Base Excess (Standard) 19.2, Cord Venous Blood Oxygen Saturation 90.5 GIOVANNA FERNANDES DO Aug 08, 2020 06:41
[2020-08-08] MEDS: ACETAMINOPHEN 500 MG TAB PO PRN ×2 (08:49→15:31)
[2020-08-08] MEDS ORDERED: INFLUENZA QUADRIVALENT PF VACCINE 0.5ML SYRINGE IM ONE (09:00)
[2020-08-08] MEDS ORDERED: BOOSTRIX/ADACEL VACCINE (DIPHTH/PERTUSS/ACELL/TETANUS) 0.5ML SYR IM ONE (09:00)
[2020-08-08] MEDS ORDERED: PRENATAL VITAMINS CHEWABLE TABLET PO SCH (09:00)
== END 2020-08-08 15:35 | disposition home or self-care (01) | DRG 560 ==
LOC: M LDI 11:32 → M OBS 08-07 16:19
PROVIDERS: ADMIT Obstetrics & Gynecology; ATTEND Obstetrics & Gynecology
PROC: 3E0P7GC Introduction of Other Therapeutic Substance into Female Reproductive, Via Natural or Artificial Opening (ICD-10-PCS; 2020-08-06)
PROC: 10E0XZZ Delivery of Products of Conception, External Approach (ICD-10-PCS; principal; 2020-08-07)
PROC: 10907ZC Drainage of Amniotic Fluid, Therapeutic from Products of Conception, Via Natural or Artificial Opening (ICD-10-PCS; 2020-08-07)
DX: O24.420 Gestational diabetes mellitus in childbirth, diet controlled (principal); Z3A.38 38 weeks gestation of pregnancy; O99.824 Streptococcus B carrier state complicating childbirth; O99.284 Endocrine, nutritional and metabolic diseases complicating childbirth; E03.9 Hypothyroidism, unspecified; O99.214 Obesity complicating childbirth; E66.9 Obesity, unspecified; O99.344 Other mental disorders complicating childbirth; F32.9 Major depressive disorder, single episode, unspecified; Z37.0 Single live birth

== ENCOUNTER → 2021-02-08 | Outpatient (REF) | payer OTHER ==
[~2021-02-08] MED LIST changes: +COLA100C5 PO; +PRENTAB9 PO
[2021-02-08 18:50] LABS: BASO # 0.1 10^3/uL (0.0-0.2); BASO % 0.5 % (0.0-1.0); EOS # 0.4 10^3/uL (0.0-0.5); EOS % 3.1 % (0.0-3.0); HEMATOCRIT 43.2 % (36.0-47.0); HEMOGLOBIN 13.4 g/dl (12.0-15.5); LYMPH % 23.2 % (24.0-44.0); MEAN CORPUSCULAR VOLUME 90.4 fl (80.0-96.0); MONO # 0.8 10^3/uL (0.0-0.8); MONO % 6.1 % (2.0-8.0); NEUTROPHILS # 8.7 10^3/uL (1.5-8.5); NEUTROPHILS % 66.5 % (36.0-66.0); PLATELET COUNT, AUTOMATED 242 10^3/uL (150-450); RED BLOOD COUNT 4.78 10^6/uL (4.00-5.40); WHITE BLOOD COUNT 13.1 10^3/uL (4.0-10.0)
[2021-02-08 19:13] LABS: ALBUMIN 4.3 GM/DL (3.2-5.2); ALT/SGPT 34 U/L (12-78); BILIRUBIN,TOTAL 0.2 MG/DL (0.2-1.0); BLOOD UREA NITROGEN 16 MG/DL (7-18); CALCIUM LEVEL 9.6 MG/DL (8.5-10.1); CARBON DIOXIDE LEVEL 25 MEQ/L (21-32); CHLORIDE LEVEL 109 MEQ/L (98-107); CHOLESTEROL LEVEL 232 MG/DL (<200); CHOLESTEROL RISK RATIO 5.658 (<5); CREATININE FOR GFR 0.71 MG/DL (0.55-1.30); GLOMERULAR FILTRATION RATE > 60.0 (>60); GLUCOSE, FASTING 83 MG/DL (70-100); HDL CHOLESTEROL 41 MG/DL (>40); LDL CHOLESTEROL 121 MG/DL (<100); NON-HDL-C 191 MG/DL; POTASSIUM SERUM 4.5 MEQ/L (3.5-5.1); SODIUM LEVEL 140 MEQ/L (136-145); TOTAL 25(OH) VITAMIN D 8.6 NG/ML (30.0-100.0); TOTAL PROTEIN 7.9 GM/DL (6.4-8.2); TRIGLYCERIDES LEVEL 351 MG/DL (<150)
== END ==
LOC: M LAB REF 17:00
PROVIDERS: ATTEND Pediatrics
DX: E03.9 Hypothyroidism, unspecified (principal); E78.5 Hyperlipidemia, unspecified

== ENCOUNTER → 2021-02-20 | Outpatient (CLI) | payer OTHER ==
--- NOTE | 2021-02-20 09:17 | REP ---
INDICATION: LUQ PAIN COMPARISON: None. TECHNIQUE: Real time B-mode gannon scale and color ultrasound examination at the site of maximal pain FINDINGS: Directed ultrasound examination along the left lateral anterior abdominal wall demonstrates normal subcutaneous fat and tissue. No fluid collection, mass, or hernia. IMPRESSION: Normal limited ultrasound examination without fluid collection, mass or hernia identified. <Electronically signed by Kiko Baron > 02/20/21 0913
== END ==
LOC: M RAD 07:55
PROVIDERS: ATTEND Pediatrics
DX: R10.9 Unspecified abdominal pain (principal)

== ENCOUNTER 2021-12-19 16:42 | Emergency (ER) | payer OTHER ==
[~2021-12-19] VITALS: Ht 172.7 cm; Wt 115.1 kg
[2021-12-19 16:43] VITALS: BP 140/72
[2021-12-19] MEDS ORDERED: HYDR-3363 (16:50)
[2021-12-19] MEDS ORDERED: ZOLO25TA (16:50)
[2021-12-19] MEDS ORDERED: LAMO25TA4 (16:50)
[2021-12-19] MEDS ORDERED: KETOROLAC TROMETHAMINE 10 MG TAB PO ONE (19:35)
== END 2021-12-19 19:52 | disposition home or self-care (01) ==
LOC: M ED 16:42
DX: S67.191A Crushing injury of left index finger, initial encounter (principal); W23.0XXA Caught, crushed, jammed, or pinched between moving objects, initial encounter; Y92.9 Unspecified place or not applicable; Y93.9 Activity, unspecified; Y99.9 Unspecified external cause status; F32.A Depression, unspecified; F17.200 Nicotine dependence, unspecified, uncomplicated; Z79.899 Other long term (current) drug therapy; Z79.890 Hormone replacement therapy

== ENCOUNTER → 2022-04-17 | Outpatient (REF) | payer OTHER ==
[~2022-04-17] MED LIST changes: +LAMO25TA4; +ZOLO25TA
== END ==
LOC: M LAB REF 16:13
PROVIDERS: ATTEND Physician Assistant Medical
DX: R50.9 Fever, unspecified (principal)

== ENCOUNTER → 2022-06-12 | Outpatient (REF) | payer OTHER | LOC: M SFHCWAGY 13:02 | PROVIDERS: ATTEND Obstetrics & Gynecology | DX: Z12.4 Encounter for screening for malignant neoplasm of cervix (principal) ==

== ENCOUNTER → 2022-08-27 | Outpatient (CLI) | payer OTHER ==
[2022-08-27 14:00] LABS: BASO # 0.1 10^3/uL (0.0-0.2); BASO % 0.5 % (0.0-1.0); EOS # 0.3 10^3/uL (0.0-0.5); EOS % 2.5 % (0.0-3.0); HEMATOCRIT 41.8 % (36.0-47.0); HEMOGLOBIN 12.2 g/dl (12.0-15.5); LYMPH # 4.5 10^3/uL (1.5-5.0); LYMPH % 32.2 % (24.0-44.0); MEAN CORPUSCULAR HEMOGLOBIN 25.1 pg (27.0-33.0); MEAN CORPUSCULAR HGB CONC 29.2 g/dl (32.0-36.5); MONO # 0.6 10^3/uL (0.0-0.8); MONO % 4.1 % (2.0-8.0); NEUTROPHILS # 8.3 10^3/uL (1.5-8.5); NEUTROPHILS % 60.2 % (36.0-66.0); PLATELET COUNT, AUTOMATED 264 10^3/uL (150-450); RED BLOOD COUNT 4.86 10^6/uL (4.00-5.40); WHITE BLOOD COUNT 13.8 10^3/uL (4.0-10.0)
[2022-08-27 14:29] LABS: ERYTHROCYTE SEDIMENTATION RATE 12 mm/hr (0-20)
[2022-08-27 14:42] LABS: HEMOGLOBIN A1c 5.4 %
[2022-08-27 15:00] LABS: ALBUMIN 3.7 GM/DL (3.2-5.2); ALT/SGPT 22 U/L (12-78); BILIRUBIN,TOTAL 0.1 MG/DL (0.2-1.0); BLOOD UREA NITROGEN 15 MG/DL (7-18); CALCIUM LEVEL 9.5 MG/DL (8.5-10.1); CARBON DIOXIDE LEVEL 23 MEQ/L (21-32); CHLORIDE LEVEL 110 MEQ/L (98-107); CREATININE FOR GFR 0.85 MG/DL (0.55-1.30); GLOMERULAR FILTRATION RATE > 60.0 (>60); GLUCOSE, FASTING 136 MG/DL (70-100); POTASSIUM SERUM 3.8 MEQ/L (3.5-5.1); RHEUMATOID FACTOR QUANT < 10.0 IU/ML (<15.0); SODIUM LEVEL 139 MEQ/L (136-145); TOTAL PROTEIN 7.3 GM/DL (6.4-8.2)
[2022-08-27 15:53] LABS: VITAMIN B12 LEVEL 407 PG/ML (247-911)
[2022-08-29 07:53] LABS: ALBUMIN % 58.9 % (55.8-66.1); ALPHA-1-GLOBULIN % 4.2 % (2.9-4.9)
[2022-08-29 07:54] LABS: ALPHA-1-GLOBULINS 0.31 GM/DL (0.17-0.41); ALPHA-2-GLOBULINS 0.74 GM/DL (0.42-0.99); ALPHA-2-GLOBULINS % 10.2 % (7.1-11.8); BETA-1-GLOBULINS 0.52 GM/DL (0.28-0.60); BETA-1-GLOBULINS % 7.1 % (4.7-7.2); BETA-2-GLOBULINS % 4.1 % (3.2-6.5); GAMMA GLOBULIN % 15.5 % (11.1-18.8); GAMMA GLOBULINS 1.13 GM/DL (0.65-1.58)
== END ==
LOC: M LAB 11:46
PROVIDERS: ATTEND Psychiatry & Neurology Neurology
DX: G62.9 Polyneuropathy, unspecified (principal)

== ENCOUNTER → 2022-12-06 | Outpatient (REF) | payer OTHER ==
[2022-12-06 21:18] LABS: HEMOGLOBIN A1c 5.1 % (4.0-6.0)
[2022-12-06 23:04] LABS: THYROID STIMULATING HORMONE 17.142 uIU/ML (0.55-4.78)
[2022-12-06 23:51] LABS: ALBUMIN 3.9 G/DL (3.2-5.2); ALKALINE PHOSPHATASE 73 U/L (46-116); ALT/SGPT 19 U/L (7.0-40); AST/SGOT 14 U/L (<34); BILIRUBIN,TOTAL 0.3 MG/DL (0.3-1.2); BLOOD UREA NITROGEN 14 MG/DL (9-23); CALCIUM LEVEL 9.6 MG/DL (8.5-10.1); CARBON DIOXIDE LEVEL 26 MMOL/L (20-31); CHLORIDE LEVEL 108 MMOL/L (98-107); GLOMERULAR FILTRATION RATE > 60.0 (>60); GLUCOSE, FASTING 73 MG/DL (60-100); POTASSIUM SERUM 4.5 MMOL/L (3.5-5.1); SODIUM LEVEL 142 MMOL/L (136-145); TOTAL PROTEIN 7.3 G/DL (5.7-8.2)
== END ==
LOC: M LAB REF 16:41
PROVIDERS: ATTEND Pediatrics
DX: E03.9 Hypothyroidism, unspecified (principal); R73.03 Prediabetes

== ENCOUNTER → 2023-10-10 | Outpatient (REF) | payer OTHER | LOC: M LAB REF 16:14 | PROVIDERS: ATTEND Physician Assistant Medical | DX: R05.9 Cough, unspecified (principal) ==

== ENCOUNTER → 2023-10-10 | Outpatient (CLI) | payer OTHER | LOC: M RAD 15:25 | PROVIDERS: ATTEND Physician Assistant Medical | DX: R05.9 Cough, unspecified (principal); R06.02 Shortness of breath ==

== ENCOUNTER → 2023-12-23 | Outpatient (REF) | payer OTHER ==
[2023-12-23 12:26] LABS: ALBUMIN 3.9 G/DL (3.2-5.2); ALKALINE PHOSPHATASE 63 U/L (46-116); ALT/SGPT 38 U/L (7.0-40); AST/SGOT 19 U/L (<34); BILIRUBIN,TOTAL 0.2 MG/DL (0.3-1.2); BLOOD UREA NITROGEN 14 MG/DL (9-23); CALCIUM LEVEL 9.9 MG/DL (8.5-10.1); CARBON DIOXIDE LEVEL 27 MMOL/L (20-31); CHLORIDE LEVEL 107 MMOL/L (98-107); CHOLESTEROL LEVEL 190 MG/DL (<200); CHOLESTEROL RISK RATIO 4.75 (<5); CREATININE FOR GFR 0.66 MG/DL (0.55-1.30); GLOMERULAR FILTRATION RATE > 60.0 (>60); GLUCOSE, FASTING 86 MG/DL (60-100); POTASSIUM SERUM 4.2 MMOL/L (3.5-5.1); SODIUM LEVEL 142 MMOL/L (136-145); TOTAL PROTEIN 7.4 G/DL (5.7-8.2); TRIGLYCERIDES LEVEL 220 MG/DL (<150)
[2023-12-23 12:27] LABS: FREE T4 0.84 NG/DL (0.89-1.76); THYROID STIMULATING HORMONE 16.734 uIU/ML (0.55-4.78)
[2023-12-23 12:28] LABS: HEMOGLOBIN A1c 5.2 % (4.0-6.0)
== END ==
LOC: M LAB REF 11:36
PROVIDERS: ATTEND Pediatrics
DX: R73.03 Prediabetes (principal); E03.9 Hypothyroidism, unspecified

== ENCOUNTER 2024-08-28 09:06 | Emergency (ER) | payer OTHER ==
[~2024-08-28] VITALS: Ht 172.7 cm; Wt 113.4 kg
[2024-08-28 12:48] LABS: HCG, SERUM QUALITATIVE NEGATIVE (NEGATIVE)
[2024-08-28] MEDS ORDERED: CEPH500C PO (12:57)
[2024-08-28 13:00] VITALS: BP 149/72; TEMP 97.9; O2SAT 99
== END 2024-08-28 13:03 | disposition home or self-care (01) ==
LOC: M ED 09:06
DX: L03.032 Cellulitis of left toe (principal); L60.0 Ingrowing nail; Z79.2 Long term (current) use of antibiotics; Z79.899 Other long term (current) drug therapy